=== PATIENT | female | born 1950 | race American Indian/Alaskan Native ===

== ENCOUNTER 2016-03-04 09:30 | Outpatient (RCR) | payer MEDICARE, BC ==
[~2016-03-04 09:30] MED LIST: BIAXIN 500MG T500 MG PO; CALTRATE-600 W600 MG PO; DITROPAN XL 5MG5 M1 PO; ETHAMBUTOL HYD400 MG PO; PRILOSEC 20MG20 MG PO; PROAIR HFA0.09 MG/AC IH; RIFADIN300 MG; RIFADIN300 MG PO; SINGULAIR 110 MG/TAB PO; SYNTHROID0.05 MG/TA PO; VITAMIN D 1001000 IU PO; ZOLOFT 100MG100 MG PO; ZYRTEC 10MG10 MG PO
== END 2016-03-16 | disposition still patient (30) ==
LOC: WSST
DX: R49.0 Dysphonia (principal)
CPT/HCPCS: G9171-GN; G9172-GN

== ENCOUNTER 2016-05-05 15:59 | Emergency (ER) | payer MEDICARE, BC ==
[~2016-05-05] VITALS: Ht 160 cm; Wt 66.8 kg
[2016-05-05 16:02] VITALS: TEMP 98.4
[2016-05-05] MEDS ORDERED: PEPCID 20MG TAB20 MG PO (18:01)
[2016-05-05] MEDS ORDERED: PREDNISONE20 MG PO (18:01)
[2016-05-05] MEDS ORDERED: BENADRYL25 M2 PO (18:01)
[2016-05-05 18:15] VITALS: BP 152/68; PULSE 78
== END 2016-05-05 18:16 | disposition home or self-care (01) ==
LOC: COL.ER 15:59
DX: L50.0 Allergic urticaria (principal); T50.Z15A Adverse effect of immunoglobulin, initial encounter
CPT/HCPCS: J1200; J2930; J7040

== ENCOUNTER 2016-06-11 09:30 | Outpatient (RCR) | payer MEDICARE, BC ==
[~2016-06-11 09:30] MED LIST changes: +BENADRYL25 M2 PO; +PEPCID 20MG TAB20 MG PO; +PREDNISONE20 MG PO
== END 2016-06-16 | disposition home or self-care (01) ==
LOC: WSST
DX: R49.0 Dysphonia (principal)
CPT/HCPCS: G9171-GN; G9172-GN

== ENCOUNTER 2016-09-15 10:15 | Outpatient (RCR) | payer MEDICARE, BC | END 2016-09-24 | disposition home or self-care (01) | LOC: WSST | DX: R49.0 Dysphonia (principal) | CPT/HCPCS: G9171-GN; G9172-GN ==

== ENCOUNTER 2016-10-08 08:14 | Day surgery (SDC) | payer MEDICARE, BC ==
[~2016-10-08] VITALS: Ht 154.9 cm; Wt 66.8 kg
[2016-10-08] VITALS (8 sets, daily range): BP systolic 101–151; BP diastolic 55–90; PULSE 73–96; TEMP 97.7–98.3
[2016-10-08] MEDS ORDERED: ZANTAC 150MG T150 MG PO (09:39)
[2016-10-08] MEDS ORDERED: ZOLOFT 100MG100 MG PO (09:40)
[2016-10-08] MEDS ORDERED: ALLERGY INJECTIONS IJ (09:41)
== END 2016-10-08 12:15 | disposition home or self-care (01) ==
LOC: SDCO 08:14
DX: A31.0 Pulmonary mycobacterial infection (principal); J47.9 Bronchiectasis, uncomplicated; K21.9 Gastro-esophageal reflux disease without esophagitis; J32.9 Chronic sinusitis, unspecified; Z80.9 Family history of malignant neoplasm, unspecified; J32.8 Other chronic sinusitis; R09.89 Other specified symptoms and signs involving the circulatory and respiratory systems; J30.9 Allergic rhinitis, unspecified; F32.9 Major depressive disorder, single episode, unspecified
CPT/HCPCS: J0456; J2704; J2920; J7030; J7050

== ENCOUNTER → 2016-12-04 | Outpatient (CLI) | payer MEDICARE, BC ==
[~2016-12-04] MED LIST changes: +ALLERGY INJECTIONS IJ; +ZANTAC 150MG T150 MG PO
== END ==
LOC: MC.RAD 12:58
DX: Z12.31 Encounter for screening mammogram for malignant neoplasm of breast (principal)

== ENCOUNTER → 2017-12-07 | Outpatient (CLI) | payer MEDICARE, BC | LOC: MC.RAD 09:51 | DX: Z12.31 Encounter for screening mammogram for malignant neoplasm of breast (principal); Z68.29 Body mass index [BMI] 29.0-29.9, adult ==

== ENCOUNTER → 2018-12-09 | Outpatient (CLI) | payer MEDICARE, BC | LOC: MC.RAD 13:42 | DX: Z12.31 Encounter for screening mammogram for malignant neoplasm of breast (principal) ==

== ENCOUNTER → 2019-12-12 | Outpatient (CLI) | payer MEDICARE, BC | LOC: MC.RAD 08:39 | DX: Z12.31 Encounter for screening mammogram for malignant neoplasm of breast (principal) ==

== ENCOUNTER 2020-07-24 20:42 | Observation (INO) | payer MEDICARE, BC ==
[~2020-07-24] VITALS: Ht 154.9 cm; Wt 68.2 kg
[2020-07-24 21:14] LABS: BASO % 0.2 % (0.0-2.0); EOS # 0.2 (0.0-0.7); EOS % 2.5 % (0-4.0); GRAN # 3.5 (1.4-6.5); GRAN % 57.4 % (42.2-75.2); HEMATOCRIT 37.9 % (37.0-47.0); HEMOGLOBIN 11.7 g/dl (12.5-16.0); LYMPH # 1.9 (1.2-3.4); LYMPH % 30.8 % (20.0-51.0); MEAN CELL VOLUME 85 fl (80.0-100.0); MEAN CORPUSCULAR HEMOGLOBIN 26 pg (27.0-31.0); MEAN CORPUSCULAR HGB CONC 31 g/dl (33.0-37.0); MEAN PLATELET VOLUME 10.8 fl (7.4-10.4); MONO # 0.5 (0.1-0.6); MONO % 8.9 % (1.7-9.3); PLATELET COUNT 251 K/mm3 (130-400); RED BLOOD COUNT 4.46 M/mm3 (4.10-5.30); REDCELL DISTRIBUTION WIDTH-CV 14.6 % (11.5-14.5)
[2020-07-24 21:29] LABS: INR 1.1 (0.8-3.0); PROTHROMBIN TIME 12.3 SECONDS (9.7-12.8)
[2020-07-24 21:31] LABS: PARTIAL THROMBOPLASTIN TIME 37.5 SECONDS (26.0-37.0)
[2020-07-24 21:44] LABS: BILIRUBIN,TOTAL 0.2 mg/dL (0.0-1.0); CALCIUM 9.5 mg/dL (8.4-10.2); CREATININE, serum 0.76 (0.52-1.25); POTASSIUM 4.1 mmol/L (3.4-5.0)
[2020-07-24] MEDS ORDERED: GRALISE300 MG PO (22:32)
[2020-07-24] MEDS ORDERED: PRIL40 PO (22:33)
[2020-07-24] MEDS ORDERED: PAXIL 20MG20 MG PO (22:33)
[2020-07-24] MEDS ORDERED: XOPENEX1.25 MG/0. IH (22:35)
[2020-07-24] MEDS ORDERED: SURFAK 240240 MG/CAP PO (22:36)
[2020-07-24] MEDS ORDERED: RT ADVAIR 228 DISKUS IH (22:37)
--- NOTE | 2020-07-24 23:40 | NUR ---
Em CAMPBELL came in to see the patient. She denies pain but reports that swelling went up a little bit from her wrist. Placed a marking on her new swelling area. Measured her hand as well. Em placed an arely wrap on her hand. Maintained left arm elevated and ice pack in place. Will place restricted extremity on her left. Em informed patient on signs and symptoms she needs to report to us. She verbalizes understanding.
--- NOTE | 2020-07-24 23:45 | NUR ---
Patient to medical room 356 at this time, accompanied by . Patient is alert and oriented and independent in the room. Her left hand/wrist is edematous and inflamed; She states the area is painful but not excruciating. HR is normal and regular; Lungs are clear with fine crackles in the bases. No lower extremity edema is noted. She is breathing well on RA. Patient educated emotional disabilities teacher light system and visiting hours. Call light in reach.
[2020-07-24] MEDS ORDERED: NEURONTIN300 MG/CAP PO (23:54)
[2020-07-25] VITALS (7 sets, daily range): BP systolic 106–133; BP diastolic 50–63; PULSE 59–68; TEMP 97.5–98.2
[2020-07-25] MEDS ORDERED: NEURONTIN300 MG/CAP PO (00:02)
[2020-07-25 00:03] LABS: BASO % 0.5 % (0.0-2.0); EOS # 0.2 (0.0-0.7); EOS % 2.9 % (0-4.0); GRAN # 3.4 (1.4-6.5); GRAN % 54.1 % (42.2-75.2); HEMOGLOBIN 11.1 g/dl (12.5-16.0); LYMPH # 2.1 (1.2-3.4); LYMPH % 33.3 % (20.0-51.0); MEAN CELL VOLUME 87 fl (80.0-100.0); MEAN CORPUSCULAR HEMOGLOBIN 27 pg (27.0-31.0); MEAN CORPUSCULAR HGB CONC 31 g/dl (33.0-37.0); MEAN PLATELET VOLUME 10.8 fl (7.4-10.4); MONO # 0.6 (0.1-0.6); PLATELET COUNT 235 K/mm3 (130-400); RED BLOOD COUNT 4.17 M/mm3 (4.10-5.30); REDCELL DISTRIBUTION WIDTH-CV 14.6 % (11.5-14.5)
[2020-07-25 00:06] LABS: HEMATOCRIT 36.1 % (37.0-47.0)
[2020-07-25 00:15] LABS: INR 1.1 (0.8-3.0); PROTHROMBIN TIME 12.1 SECONDS (9.7-12.8)
[2020-07-25 00:17] LABS: PARTIAL THROMBOPLASTIN TIME 35.2 SECONDS (26.0-37.0)
--- NOTE | 2020-07-25 02:25 | NUR ---
Poison control called and give them updates on patient's lab results. Re-measured her hand and it is still 21.5cm. Patient denies pain but reports hand still feels tender.
--- NOTE | 2020-07-25 06:16 | NUR ---
Patient continued to report no pain just tenderness. Last measurement on her hand is 20cm. Swelling did not progress furthermore.
[2020-07-25 06:32] LABS: BASO % 0.4 % (0.0-2.0); EOS # 0.2 (0.0-0.7); EOS % 3.2 % (0-4.0); GRAN # 2.4 (1.4-6.5); HEMOGLOBIN 11.4 g/dl (12.5-16.0); LYMPH # 1.9 (1.2-3.4); LYMPH % 37.9 % (20.0-51.0); MEAN CELL VOLUME 86 fl (80.0-100.0); MEAN CORPUSCULAR HEMOGLOBIN 27 pg (27.0-31.0); MEAN CORPUSCULAR HGB CONC 32 g/dl (33.0-37.0); MEAN PLATELET VOLUME 10.8 fl (7.4-10.4); MONO # 0.5 (0.1-0.6); MONO % 10.3 % (1.7-9.3); PLATELET COUNT 201 K/mm3 (130-400); REDCELL DISTRIBUTION WIDTH-CV 14.7 % (11.5-14.5)
[2020-07-25 06:35] LABS: HEMATOCRIT 36.2 % (37.0-47.0)
[2020-07-25 07:14] LABS: INR 1.1 (0.8-3.0); PROTHROMBIN TIME 12.3 SECONDS (9.7-12.8)
[2020-07-25 07:15] LABS: PARTIAL THROMBOPLASTIN TIME 32.9 SECONDS (26.0-37.0)
--- NOTE | 2020-07-25 07:32 | NUR ---
Patient lying awake in bed at this time. Swelling has not progressed past the point last documented. Patient denies any pain, discomfort, or further needs at this time. Will continue to monitor. Call light in reach.
--- NOTE | 2020-07-25 09:01 | NUR ---
RADHA met with the patient and her , Billy (ph#[phone]), to discuss discharge plan. The patient lives in [place] with her and mother, Sandra. She reports independence with ADLs and does not have any DME. The patient's PCP is Dr. Mercedes Aj and [facility]. The patient does not have a DPOA-HC in EMR, but she states that she does have one completed and that it designates her . She reports that Dr. Aj's office may have a copy of it. RADHA contacted QUINTEN Puenteelectrical manufacturing technician, at Dr. Aj's to inquire if they have a copy. Cindi states that she will check and let RADHA know. The patient plans to return home with her and mother upon discharge. No additional needs at this time. *Discharge plan: home with family*
--- NOTE | 2020-07-25 09:27 | NUR ---
SW received the patient's DPOA-HC, via fax. SW placed the document in the patient's chart. The patient's DPOA-HC is her .
--- NOTE | 2020-07-25 10:47 | NUR ---
Initial visist; Patient and her thanked Sound Engineer for looking in on Eliana, wishing her well and a keeping her in Sound Engineer's prayers.
--- NOTE | 2020-07-25 15:01 | NUR ---
Scheduled medications given. Assessments preformed. Left hand continues to be swollen. Patient C/O pain rated a 5/10 when site was touched, no pain while resting. Hand last measured at 20.5 cm, which is a decrease from 21.5 cm. Katie Key RN with poison control updated on situation. Labs continue to be stable. VSS. Will continue to monitor. Call light in reach.
--- NOTE | 2020-07-25 17:48 | NUR ---
Patient resting in bed at this time. Left hand elevated, cold pack applied. Last measurement of hand was 19.75. Patient only C/O tenderness when hand is touched. Patient states that she does not need tylenol at this time. Does not C/O any discomfort or futher needs at this time. Will continue to monitor. Call light in reach.
--- NOTE | 2020-07-25 19:05 | NUR ---
Received report from Ivon. Patient awake in bed. at bedside.
--- NOTE | 2020-07-25 20:30 | NUR ---
Patient denies pain on her left hand but states it is just tender to touch. There are no progression of swelling. Left arm maintained elevated and covered with arely wrap.
[2020-07-26 04:29] VITALS: BP 111/55; PULSE 67; TEMP 97.6
--- NOTE | 2020-07-26 06:50 | NUR ---
Patient stayed the same the whole night with no complains of pain. Swelling still the same on her hand.
[2020-07-26 06:55] LABS: BASO % 0.2 % (0.0-2.0); EOS # 0.1 (0.0-0.7); EOS % 2.5 % (0-4.0); GRAN # 3.3 (1.4-6.5); GRAN % 65.2 % (42.2-75.2); HEMATOCRIT 38.9 % (37.0-47.0); HEMOGLOBIN 12.5 g/dl (12.5-16.0); LYMPH # 1.1 (1.2-3.4); LYMPH % 21.4 % (20.0-51.0); MEAN CELL VOLUME 85 fl (80.0-100.0); MEAN CORPUSCULAR HEMOGLOBIN 27 pg (27.0-31.0); MEAN CORPUSCULAR HGB CONC 32 g/dl (33.0-37.0); MEAN PLATELET VOLUME 11.1 fl (7.4-10.4); MONO # 0.5 (0.1-0.6); MONO % 10.5 % (1.7-9.3); PLATELET COUNT 192 K/mm3 (130-400); RED BLOOD COUNT 4.56 M/mm3 (4.10-5.30); REDCELL DISTRIBUTION WIDTH-CV 14.5 % (11.5-14.5)
--- NOTE | 2020-07-26 07:10 | NUR ---
Patient resting in bed at this time. Left hand continues to be swollen, measuring 20 cm. Patient denies any pain, discomfort, or further needs at this time. Will continue to monitor. Call light in reach.
[2020-07-26 07:17] LABS: CALCIUM 9.1 mg/dL (8.4-10.2); POTASSIUM 3.8 mmol/L (3.4-5.0)
[2020-07-26 07:34] LABS: CREATININE, serum 0.63 (0.52-1.25)
[2020-07-26 07:51] VITALS: BP 124/68; PULSE 71; TEMP 98.6
--- NOTE | 2020-07-26 10:06 | NUR ---
Scheduled medications given. Assessments preformed. Patient's left hand continues to be swollen, however edema has decrease. +1 edema measuring 19.5 cm. Patient states that the pain in her hand has decreased. Rates the pain 1/10 when touched. Patient denies any further pain, discomfort, or needs at this time. VSS. Will continue to monitor. Call light in reach.
--- NOTE | 2020-07-26 11:25 | NUR ---
Patient being discharged home with . Discharge education/instructions given. Patient and denie any further questions or concerns at this time. VSS. Patient ambulated from the building escorted by [facility] Staff.
== END 2020-07-26 11:27 | disposition home or self-care (01) ==
LOC: COL.ER 20:42 → MEDICAL 22:01
PROVIDERS: Emergency Medicine; Student in an Organized Health Care Education/Training Program; ADMIT Student in an Organized Health Care Education/Training Program
DX: T63.091A Toxic effect of venom of other snake, accidental (unintentional), initial encounter (principal); Y92.007 Garden or yard of unspecified non-institutional (private) residence as the place of occurrence of the external cause; M79.645 Pain in left finger(s); A31.0 Pulmonary mycobacterial infection; E87.1 Hypo-osmolality and hyponatremia; J47.9 Bronchiectasis, uncomplicated; E03.9 Hypothyroidism, unspecified; K21.9 Gastro-esophageal reflux disease without esophagitis; R32 Unspecified urinary incontinence; F32.9 Major depressive disorder, single episode, unspecified; Z79.890 Hormone replacement therapy; Z79.899 Other long term (current) drug therapy
CPT/HCPCS: 99223-AI; 99232-AI; G0378; J7030

== ENCOUNTER 2020-09-10 16:42 | Inpatient (IN) | payer MEDICARE, BC ==
[~2020-09-10] VITALS: Ht 157.5 cm; Wt 61.4 kg
[~2020-09-10 16:42] MED LIST changes: +GRALISE300 MG PO; +NEURONTIN300 MG/CAP PO; +PAXIL 20MG20 MG PO; +PRIL40 PO; +RT ADVAIR 228 DISKUS IH; +SURFAK 240240 MG/CAP PO; +XOPENEX1.25 MG/0. IH
[2020-09-10 18:03] LABS: HEMOGLOBIN 11.8 g/dl (12.5-16.0); MEAN CELL VOLUME 78 fl (80.0-100.0); MEAN CORPUSCULAR HEMOGLOBIN 27 pg (27.0-31.0); MEAN CORPUSCULAR HGB CONC 34 g/dl (33.0-37.0); MEAN PLATELET VOLUME 12.7 fl (7.4-10.4); PLATELET COUNT 160 K/mm3 (130-400); RED BLOOD COUNT 4.42 M/mm3 (4.10-5.30); REDCELL DISTRIBUTION WIDTH-CV 14.3 % (11.5-14.5)
[2020-09-10 18:04] LABS: HEMATOCRIT 34.4 % (37.0-47.0)
[2020-09-10 18:15] LABS: ALANINE AMINOTRANSFERASE 34 U/L (4-34); ALBUMIN 3.2 gm/dL (3.5-5.0); ALKALINE PHOSPHATASE 230 U/L (50-136); ANION GAP 8 mmol/L (7-16); AST,SGOT 80 U/L (15-37); BILIRUBIN,TOTAL 1.1 mg/dL (0.0-1.0); BLOOD UREA NITROGEN 13 mg/dL (7-17); CALCIUM 8.5 mg/dL (8.4-10.2); CARBON DIOXIDE 22 mmol/L (22-30); CHLORIDE 97 mmol/L (98-107); CREATININE, serum 0.85 (0.52-1.25); GLUCOSE 97 mg/dL (74-106); SODIUM 127 mmol/L (137-145); TOTAL PROTEIN 7.5 gm/dL (6.4-8.2)
[2020-09-10 18:33] LABS: C-REACTIVE PROTEIN 24.7 mg/dL (0.0-0.9)
[2020-09-10 18:37] LABS: INR 1.6 (0.8-3.0); PROTHROMBIN TIME 17.8 SECONDS (9.7-12.8)
[2020-09-10 18:40] LABS: TROPONIN-I < 0.012 ng/mL (0.000-0.035)
[2020-09-10 18:44] LABS: BAND 1 % (0-10); EOSINOPHIL 3 % (0-4); LYMPHOCYTE 7 % (20.0-51.0); MICROCYTOSIS 1+; NEUTROPHILS 87 % (42.0-75.2)
[2020-09-10 18:45] LABS: PLATELET ESTIMATE NORMAL (NORMAL)
[2020-09-10 19:04] LABS: COLLECTION METHOD CLEAN CATCH
[2020-09-10 19:12] LABS: PH 6 (5-8); SQUAMOUS EPITHELIAL 0-2 /hpf; URINE APPEARANCE Hazy; URINE BACTERIA None Seen /hpf; URINE BILIRUBIN Negative (NEGATIVE); URINE BLOOD Negative (NEGATIVE); URINE COLOR Yellow; URINE GLUCOSE Negative (NEGATIVE); URINE KETONE Negative (NEGATIVE); URINE LEUKOCYTE ESTERASE Trace (NEGATIVE); URINE NITRATE Negative (NEGATIVE); URINE PROTEIN(semi-quant) 1+ (NEGATIVE); URINE RBC 0-2 /hpf
[2020-09-10 19:13] LABS: LIPASE 622 U/L (23-300)
[2020-09-10] MEDS ORDERED: RT ADVAIR 228 DISKUS IH (23:57)
[2020-09-10] MEDS ORDERED: XOPENEX HF0.045 MG/A IH (23:58)
--- NOTE | 2020-09-11 00:30 | NUR ---
To unit via wheelchair. Transfers to bed with slow unsteady gait, standby assist. NS infusing per gravity to LAC, rate regulated by in line flow device @ 75cc/hr. O2 @ 2L/NC. Pt alert and oriented. Warm blanket provided. Pt requests up to bathroom, stand by assist, slow careful gait.
[2020-09-11 01:30] VITALS: BP 139/64; PULSE 120; TEMP 99.8
--- NOTE | 2020-09-11 03:00 | NUR ---
Pt removed from Isolation precautions Covid results Negative.
--- NOTE | 2020-09-11 04:00 | NUR ---
Called RT to verify the order for breathing treatment had come to their dept. RT verify it has.
[2020-09-11 05:00] VITALS: BP 119/59; PULSE 117; TEMP 100.6
--- NOTE | 2020-09-11 05:35 | NUR ---
Called RT about 0200 treatment. RT reports "since we missed the 0200 dose and it's every 6hrs we will start it @ 0600"
[2020-09-11 07:06] VITALS: BP 103/55; PULSE 95; TEMP 97.5
[2020-09-11 08:09] LABS: HEMOGLOBIN 10.7 g/dl (12.5-16.0); MEAN CELL VOLUME 78 fl (80.0-100.0); MEAN CORPUSCULAR HEMOGLOBIN 26 pg (27.0-31.0); MEAN CORPUSCULAR HGB CONC 33 g/dl (33.0-37.0); PLATELET COUNT 173 K/mm3 (130-400); RED BLOOD COUNT 4.14 M/mm3 (4.10-5.30); REDCELL DISTRIBUTION WIDTH-CV 14.6 % (11.5-14.5)
[2020-09-11 08:10] LABS: HEMATOCRIT 32.4 % (37.0-47.0)
[2020-09-11 08:27] LABS: CALCIUM 7.7 mg/dL (8.4-10.2); CREATININE, serum 0.72 (0.52-1.25); POTASSIUM 3.9 mmol/L (3.4-5.0)
[2020-09-11 10:11] LABS: BAND 12 % (0-10); EOSINOPHIL 1 % (0-4); METAMYELOCYTE 1 % (0-0); PLATELET ESTIMATE NORMAL (NORMAL)
[2020-09-11 10:12] LABS: LYMPHOCYTE 5 % (20.0-51.0)
[2020-09-11 10:13] LABS: NEUTROPHILS 79 % (42.0-75.2)
--- NOTE | 2020-09-11 10:30 | NUR ---
Patient is in bed, alert and oriented x 3, vital signs stable. She feels tired. Patient is able to walk but slowly. Daugter is present in room. Tele in place, NS runing. No further needs at this time. Call light within reach.
[2020-09-11 11:29] VITALS: BP 95/53; PULSE 87; TEMP 97.5
[2020-09-11 17:31] VITALS: BP 102/55; PULSE 105; TEMP 97.7
--- NOTE | 2020-09-11 19:38 | NUR ---
Patient has been resting in bed, feeling weak. Has difficulty while speaking but no pain. and daughter has been at the bedside. NS running. No further needs at this time. Call light within reach.
--- NOTE | 2020-09-11 20:00 | NUR ---
Assessment complete. Patient is alert and oriented with no complaints. She is assisted with x1 assist and walker to the bathroom to void. HR normal/regular and lungs have fine crackles throughout. Bilateral upper extremities are red and warm; small red spots are noted on her lower extremities as well. Fluids infusing into left a/c IV. Bed alarm set and call light in reach.
[2020-09-11 21:03] VITALS: BP 125/63; PULSE 72; TEMP 98.9
[2020-09-12 04:50] VITALS: BP 114/63; PULSE 65; TEMP 98.1
[2020-09-12 07:25] LABS: MEAN CELL VOLUME 79 fl (80.0-100.0); MEAN CORPUSCULAR HGB CONC 34 g/dl (33.0-37.0); MEAN PLATELET VOLUME 12.7 fl (7.4-10.4); PLATELET COUNT 197 K/mm3 (130-400); RED BLOOD COUNT 3.62 M/mm3 (4.10-5.30); REDCELL DISTRIBUTION WIDTH-CV 14.6 % (11.5-14.5)
[2020-09-12 07:31] LABS: HEMATOCRIT 28.6 % (37.0-47.0); HEMOGLOBIN 9.7 g/dl (12.5-16.0); MEAN CORPUSCULAR HEMOGLOBIN 27 pg (27.0-31.0)
[2020-09-12 07:37] LABS: CREATININE, serum 0.62 (0.52-1.25); MAGNESIUM 1.9 mg/dL (1.6-2.3)
--- NOTE | 2020-09-12 09:00 | NUR ---
Patient is lying in bed, still weak and hard for her to speak. Alert and oriented x 4, vital signs stable, no nausea or vomiting. is in room with her. Medications provided. No further needs at this time. Call light within reach.
[2020-09-12 09:11] VITALS: BP 113/56; PULSE 91; TEMP 98
--- NOTE | 2020-09-12 09:36 | NUR ---
Initial visit; Patient and her thanked Roll Mechanic for offering God's blessings and to keep Eliana in her prayers.
--- NOTE | 2020-09-12 10:47 | NUR ---
RADHA met with the patient and her , Billy (ph#[phone]), to discuss discharge plan. The patient lives in [place] with her and mother. She reports independence with ADLs before hospitalization and has a walker. The patient's PCP is Dr. Mercedes Aj and [facility]. She reports no difficulties obtaining her meds. The patient's DPOA-HC is in EMR and it designates her . Her son, Kaleb (ph#[phone]), is the alternate. He lives in [place]. The patient plans to return home with her upon discharge. PT has worked with the patient and noted that she is very weak, but doing better than yesterday. RADHA informed the patient and her of this and discussed home health services. The patient and her report that they are not sure if they are interested in home health. Billy reports that they are familiar with outpatient therapy, but are not sure if they would want or need to get this set up. They would like some time to think about it. RADHA also provided the patient and her with Medicare.gov's list of home health agencies that serve [place]. SW to continue to follow. *Discharge plan: home with *
[2020-09-12 12:44] VITALS: BP 122/58; PULSE 88; TEMP 98
[2020-09-12 15:21] VITALS: BP 111/56; PULSE 99; TEMP 97.8
--- NOTE | 2020-09-12 19:23 | NUR ---
Patient is lying in bed, with closed eyes. Responds when talking to her. Has been stable all day but no improvement in attitude showed, seems very weak and without energy. has been with her all day. Meds provided as prescribed. No further needs at this time. Call light within reach.
[2020-09-12 19:51] VITALS: BP 117/59; PULSE 104; TEMP 98.3
--- NOTE | 2020-09-12 20:00 | NUR ---
Assessment complete. Patient is slightly drowsy but answers orientation questions correctly. She has no complaints of pain. She is currently afebrile. ABX infusing into left a/c IV. Comfort measures met and call light in reach. Bed alarm set. Will continue to monitor.
[2020-09-12 23:17] VITALS: BP 118/66; PULSE 102; TEMP 98.4
[2020-09-13 03:36] VITALS: BP 120/65; PULSE 95; TEMP 97.8
[2020-09-13 07:52] LABS: MEAN CELL VOLUME 78 fl (80.0-100.0); MEAN CORPUSCULAR HGB CONC 34 g/dl (33.0-37.0); MEAN PLATELET VOLUME 13.5 fl (7.4-10.4); PLATELET COUNT 195 K/mm3 (130-400); RED BLOOD COUNT 3.67 M/mm3 (4.10-5.30); REDCELL DISTRIBUTION WIDTH-CV 14.6 % (11.5-14.5)
[2020-09-13 07:55] LABS: HEMATOCRIT 28.5 % (37.0-47.0); HEMOGLOBIN 9.6 g/dl (12.5-16.0); MEAN CORPUSCULAR HEMOGLOBIN 26 pg (27.0-31.0)
[2020-09-13 08:00] LABS: CALCIUM 8.1 mg/dL (8.4-10.2); CREATININE, serum 0.58 (0.52-1.25); POTASSIUM 3.7 mmol/L (3.4-5.0)
[2020-09-13 08:16] LABS: BAND 12 % (0-10); EOSINOPHIL 3 % (0-4); HYPOCHROMIA 1+; LYMPHOCYTE 12 % (20.0-51.0); NEUTROPHILS 68 % (42.0-75.2); PLATELET ESTIMATE NORMAL (NORMAL)
--- NOTE | 2020-09-13 09:03 | NUR ---
Shift assessment complete. Pt sitting up in bed, at bedside assisting pt w/breakfast. Pt assisted SBA w/walker to restroom and back to bed. Drowsy but oriented x4. Denies pain or SOA. Heart RRR. Lungs CTA. Denies needs at this time. Call light in reach.
[2020-09-13 09:21] VITALS: BP 126/59; PULSE 91; TEMP 97.7
[2020-09-13 12:12] VITALS: BP 117/66; PULSE 89; TEMP 98.4
--- NOTE | 2020-09-13 15:49 | NUR ---
OT is recommending post-acute rehab vs home. SW met with the patient and her , Billy, to review d/c plan and discuss their recommendation. The patient reports that she would prefer to return home. Billy was supportive of her decision. He reports that they would prefer to do outpatient therapy over home health and chose [facility]. SW to contact [facility] to schedule the appointments.
[2020-09-13 16:03] VITALS: BP 121/59; PULSE 91; TEMP 98
[2020-09-13 19:57] VITALS: BP 114/58; PULSE 95; TEMP 98.6
--- NOTE | 2020-09-13 20:00 | NUR ---
PATIENT IS A&O. VSS ON TELE. NO C/O PAIN OR N/V. IV ABX INFUSING INTO LEFT AC IV. HEAD TO TOE ASSESSMENT COMPLETE. A&P LUNG KURTZ NOTED COARSE CRACKLES AND EXP WHEEZE. NO COUGH. AT BEDSIDE. PATIENT IS STAND BY ASSIST WITH WALKER. PT/OT CONSULTED. HS MEDS GIVEN. NO OTHER NEEDS. CALL LIGHT IN REACH.
[2020-09-13 23:49] VITALS: BP 123/73; PULSE 88; TEMP 98.7
[2020-09-14 03:03] VITALS: BP 124/66; PULSE 91; TEMP 98.6
[2020-09-14 06:38] LABS: HEMATOCRIT 29.6 % (37.0-47.0); MEAN CELL VOLUME 79 fl (80.0-100.0); MEAN CORPUSCULAR HEMOGLOBIN 27 pg (27.0-31.0); MEAN CORPUSCULAR HGB CONC 34 g/dl (33.0-37.0); MEAN PLATELET VOLUME 12.1 fl (7.4-10.4); PLATELET COUNT 225 K/mm3 (130-400); RED BLOOD COUNT 3.74 M/mm3 (4.10-5.30); REDCELL DISTRIBUTION WIDTH-CV 14.8 % (11.5-14.5)
[2020-09-14 06:46] LABS: CALCIUM 8.5 mg/dL (8.4-10.2); CREATININE, serum 0.6 (0.52-1.25); POTASSIUM 3.8 mmol/L (3.4-5.0)
[2020-09-14 07:19] LABS: BAND 14 % (0-10); EOSINOPHIL 2 % (0-4); HYPOCHROMIA 1+; LYMPHOCYTE 27 % (20.0-51.0); METAMYELOCYTE 1 % (0-0); NEUTROPHILS 51 % (42.0-75.2); PLATELET ESTIMATE NORMAL (NORMAL)
[2020-09-14 07:35] VITALS: BP 130/64; PULSE 82; TEMP 98.5
--- NOTE | 2020-09-14 07:45 | NUR ---
Shift assessment complete. Pt resting in bed, A&Ox4. Heart RRR. Lungs CTA. Denies pain/dizziness/SOA. Does report still feeling weaker to normal. Ambulated to restroom SBA w/walker and assisted back to bed. Denies needs at this time. Call light in reach.
[2020-09-14] MEDS ORDERED: DOXYCYCLINE 10100 MG PO (09:31)
[2020-09-14] MEDS ORDERED: LEVAQUIN 750MG750 M1 PO (09:31)
--- NOTE | 2020-09-14 10:10 | NUR ---
The patient's PA notified RADHA that the patient is thinking about home health now over outpatient therapy. RADHA then met with the patient and her to follow up. The patient and her report that they would be interested in home health now and then graduate to outpatient PT/OT. The patient and her chose [facility]. RADHA contacted and faxed a referral to Tika at [facility]. Awaiting screen. RADHA presented and read the IM form outloud to the patient. The patient verbalized understanding and gave RADHA approval to sign the form on her behalf. RADHA provided her with a copy.
[2020-09-14 11:30] VITALS: BP 108/72; PULSE 86; TEMP 98.3
--- NOTE | 2020-09-14 11:47 | NUR ---
Tika, at [facility], reports that they are able to accept the patient for services. The patient is to discharge back home with her today, 09/14, with home health services for fci/PT/OT from [facility]. SW notified and faxed d/c orders to Tika at [facility]. No additional needs at this time.
--- NOTE | 2020-09-14 11:50 | NUR ---
Discharge instructions discussed w/pt and , all questions answered. IV to left AC removed, tip intact. Pt escorted out via wheelchair w/all belongings.
== END 2020-09-14 12:00 | disposition home health service (06) | DRG 872 ==
LOC: COL.ER 16:42 → MEDICAL 22:56 → OB 22:56 → MEDICAL 09-11 10:03
PROVIDERS: Emergency Medicine; Physician Assistant; Student in an Organized Health Care Education/Training Program; ADMIT Student in an Organized Health Care Education/Training Program
DX: A41.9 Sepsis, unspecified organism (principal); E87.1 Hypo-osmolality and hyponatremia; J47.9 Bronchiectasis, uncomplicated; Z90.710 Acquired absence of both cervix and uterus; E03.9 Hypothyroidism, unspecified; K21.9 Gastro-esophageal reflux disease without esophagitis; I95.9 Hypotension, unspecified; R05 Cough; L27.0 Generalized skin eruption due to drugs and medicaments taken internally; T36.8X5A Adverse effect of other systemic antibiotics, initial encounter; R49.0 Dysphonia; F32.9 Major depressive disorder, single episode, unspecified; R32 Unspecified urinary incontinence; Z20.822 Contact with and (suspected) exposure to COVID-19
CPT/HCPCS: 99223-AI; 99232-AI; 99233-AI; 99239; J1650; J1956; J7030; Q9967

== ENCOUNTER 2020-11-16 08:45 | Outpatient (RCR) | payer MEDICARE, BC ==
[~2020-11-16 08:45] MED LIST changes: +DOXYCYCLINE 10100 MG PO; +LEVAQUIN 750MG750 M1 PO; +XOPENEX HF0.045 MG/A IH
== END 2020-11-16 11:57 | disposition home or self-care (01) ==
LOC: MKS.ESL.PT 08:45
DX: A31.0 Pulmonary mycobacterial infection (principal); J47.9 Bronchiectasis, uncomplicated

== ENCOUNTER → 2020-12-13 | Outpatient (CLI) | payer MEDICARE, BC | LOC: MC.RAD 07:43 | DX: Z12.31 Encounter for screening mammogram for malignant neoplasm of breast (principal) ==

== ENCOUNTER → 2023-02-11 | Outpatient (CLI) | payer MEDICARE, BC | LOC: MC.RAD 08:13 | DX: Z12.31 Encounter for screening mammogram for malignant neoplasm of breast (principal) ==